=== PATIENT | female | born 1950 | race Caucasian/White ===

== ENCOUNTER → 2019-11-18 12:40 | Outpatient (CLI) | payer MEDICARE, SELFPAY ==
--- NOTE | ~2019-11-18 | DEXA_ITS ---
Bone Density Report Name: Tammy Zelaya Age: 69 Sex: Female Ethnicity: White Date of : 1950 Indication: osteopenia; height loss; postmenopausal Referring Provider: LOUIE, FERNANDA Study: Bone densitometry was performed. Exam Date: November 18, 2019 Accession number: [id number] Bone Density: Region BMD T-score Z-score Classification AP Spine (L1-L4) 0.813 -2.1 -0.2 Osteopenia Femoral Neck (Left) 0.544 -2.8 -1.1 Osteoporosis Total Hip (Left) 0.667 -2.3 -0.9 Osteopenia Femoral Neck (Right) 0.522 -2.9 -1.3 Osteoporosis Total Hip (Right) 0.642 -2.5 -1.1 Osteoporosis Total Hip Mean 0.655 -2.4 -1.0 Osteopenia World Health Organization criteria for BMD impression classify patients as: Normal (T-score at or above -1.0), Osteopenia (T-score between -1.0 and -2.5), or Osteoporosis (T-score at or below -2.5). 10-year Fracture Risk: FRAX not reported because: Some T-score for Spine Total or Hip Total or Femoral Neck at or below -2.5 Previous Exams: Region Exam Age BMD T-score BMD Change BMD Change Date g/cm2 vs Baseline vs Previous AP Spine(L1-L4) 11/18/2019 69 0.813 -2.1 -0.037* -0.033* 03/11/2017 66 0.846 -1.8 -0.004 0.018 12/21/2014 64 0.828 -2.0 -0.021 -0.021 12/15/2012 62 0.850 -1.8 Total Hip(Left) 11/18/2019 69 0.667 -2.3 -0.081* -0.025 03/11/2017 66 0.692 -2.1 -0.056* -0.012 12/21/2014 64 0.703 -2.0 -0.045* -0.045* 12/15/2012 62 0.748 -1.6 Total Hip(Right) 11/18/2019 69 0.642 -2.5 -0.076* -0.044* 03/11/2017 66 0.686 -2.1 -0.031* -0.011 12/21/2014 64 0.697 -2.0 -0.020 -0.020 12/15/2012 62 0.717 -1.8 *Denotes significance at 95% confidence level, LSC for AP Spine = 0.022 g/cm2, LSC for Total Hip = 0.027 g/cm2 Clinical Information Provided by Patient: Has used the following medications: Calcium, vit D included in calcium pill, MTV Patient maximum height was 65 Menopause Age: 52 Drinks caffeinated beverages Onset of menses at age 17 Number of children 2 Missed period for more than 6 months in a row Impression: The patient has osteoporosis, based on the Right Femoral Neck T-score. The BMD for the AP Spine(L1-L4) decreased, changing by -0.033 since the last DXA exam. The BMD for the Total Hip(Right) decreased, changing by -0.044 since the l
--- NOTE | ~2019-11-18 | MM_ITS ---
EXAMINATION: MM screening [facility] BI w rigo HISTORY: Screening mammogram TECHNIQUE: Craniocaudal and mediolateral oblique 3-D tomosynthesis images were obtained and synthetic 2-D images were generated. CAD analysis was submitted and interpreted. COMPARISON: 03/11/2017, 03/05/2017, 12/21/2014 BREAST PARENCHYMAL COMPOSITION: The breasts are heterogeneously dense, which may obscure small masses . FINDINGS: There is no evidence of suspicious mass, calcification, or architectural distortion to sugg est malignancy in either breast. There has been no suspicious interval change. IMPRESSION: 1. No mammographic evidence of malignancy. 2. Recommend routine screening mammography in one year. BI-RADS Category 1: Negative Reviewed, dictated and finalized at location B.
== END ==
PROVIDERS: PCP Family Medicine; Visit Provider Nurse Practitioner
DX: Z12.31 Encounter for screening mammogram for malignant neoplasm of breast (principal); M85.88 Other specified disorders of bone density and structure, other site; M85.852 Other specified disorders of bone density and structure, left thigh; M85.851 Other specified disorders of bone density and structure, right thigh; M81.0 Age-related osteoporosis without current pathological fracture
CPT/HCPCS: 77063; 77067; 77080

== ENCOUNTER → 2021-03-06 11:21 | Outpatient (CLI) | payer OTHER, SELFPAY ==
--- NOTE | ~2021-03-06 | MM_ITS ---
EXAMINATION: MM screening [facility] BI w rigo HISTORY: Screening mammogram TECHNIQUE: Craniocaudal and mediolateral oblique 3-D tomosynthesis images were obtained and synthetic 2-D images were generated. CAD analysis was submitted and interpreted. COMPARISON: 11/18/2019, 03/11/2017, 03/05/2017 BREAST PARENCHYMAL COMPOSITION: The breasts are extremely dense, which lowers the sensitivity of mamm ography. FINDINGS: There is no evidence of suspicious mass, calcification, or architectural distortion to sugg est malignancy in either breast. There has been no suspicious interval change. IMPRESSION: 1. No mammographic evidence of malignancy. 2. Recommend routine screening mammography in one year. BI-RADS Category 1: Negative Reviewed, dictated and finalized at location A. ER MANAGEMENT PROFESSOR
== END ==
PROVIDERS: PCP Family Medicine; Visit Provider Nurse Practitioner
DX: Z12.31 Encounter for screening mammogram for malignant neoplasm of breast (principal)
CPT/HCPCS: 77063; 77067

== ENCOUNTER 2022-02-05 01:35 | Day surgery (SDC) | payer OTHER, SELFPAY ==
[2022-01-21 14:15] VITALS: BMI 17.6
[2022-02-05 06:42] VITALS: BP 127/74; PULSE 97; RESP 16; TEMP 36.6; O2SAT 99
[2022-02-05] MEDS: LACTATED RINGERS 1,000 ML 150 ML IV CONT (06:52)
--- NOTE | 2022-02-05 07:47 | WPDANESEPPF ---
Anes - Initial Pre Proc Eval Procedure: Operation Date: 02/05/22 08:00 Proposed Procedures p Screening Colonoscopy - Javi Garcia MD Date/Time: 02/05/22 07:47 Surgeon: Javi Garcia MD Pre Op Diagnosis: hx colon polyps Patient Data Age: 71 Gender: F Height: 1.65 m Weight: 45.6 kg Last Vital Signs Temp 98 F 02/05/22 06:42 Pulse 97 02/05/22 06:42 Resp 16 02/05/22 06:42 BP 127/74 02/05/22 06:42 Pulse Ox 99 02/05/22 06:42 O2 Del Method Room Air 02/05/22 06:42 Allergies Allergy/AdvReac Type Severity Reaction Status Date / Time No Known Allergies Allergy Verified 02/05/22 06:41 Home Medications Medication Instructions Recorded Confirmed Type No Home Medications 02/05/22 02/05/22 History Patient hx anesthesia problems: none Family hx anesthesia problems: none Results Review: All pre-operative results and documents have been reviewed as part of the pre-operative evaluation. [facility] Social History Social History Smoking packs per day: 0.5 Smoking cigarettes per day: 10.0 Years smoked: 5 Smoking pack-years: 2.50 Smoking status: Former smoker Alcohol intake: never Substance use: never Substance use type: does not use Living arrangements: alone Spiritual care concerns: No Anes - Eval Final PreProcedure Day of Procedure 02/05/22 07:47 Patient weight: normal Heart: regular rate and rhythm Lungs: clear to auscultation Airway: Mallampati scale class II Neurological: alert and oriented Last oral intake: >/= 8 hours ASA classification: II Emergent: no Anesthetic plan: proceed Anesthesia type and monitoring: general GIVS and standard monitoring Results Review: All pre-operative results and documents have been reviewed as part of the pre-operative evaluation. Informed Consent: The patient's anesthetic plan and its attendant risks and benefits were discussed with the patient/family/POA. Questions were solicited and answers provided to the satisfaction of the patient/family/POA.
--- NOTE | 2022-02-05 08:06 | PM.HPGS ---
History of Present Illness History of Present Illness Consent: Risks, benefits, and alternatives have been discussed and questions answered. Patient agrees to proceed with procedure. Chief complaint: hx colon polyps Narrative: Tammy Zelaya is a 71 year old female Presumed presents for surveillance colonoscopy. Patient was found to have adenomatous colon polyp by previous colonoscopy 2017. Patient has a history of left-sided ulcerative colitis diagnosed elsewhere in 1996. At that time she responded to prednisone. Apparently she did not tolerate some of the other medications. And has not been on treatment since that time. For many years felt to be in remission. Patient reports a recent sense of urgency. A change in the bowel character. She occasionally will spot blood in her stools. Review of Systems Review of Systems: Review of systems noncontributory. [facility] Social History Social History Smoking packs per day: 0.5 Smoking cigarettes per day: 10.0 Years smoked: 5 Smoking pack-years: 2.50 Smoking status: Former smoker Alcohol intake: never Substance use: never Substance use type: does not use Living arrangements: alone Spiritual care concerns: No Meds Home Medications and Allergies Home Medications Medication Instructions Recorded Confirmed Type No Home Medications 02/05/22 02/05/22 History Allergies Allergy/AdvReac Type Severity Reaction Status Date / Time No Known Allergies Allergy Verified 02/05/22 06:41 Vital Signs Vital Signs - 24 hr 02/05/22 06:42 Temperature 98 F Pulse Rate 97 Respiratory Rate 16 Blood Pressure 127/74 Pulse Oximetry 99 Oxygen Delivery Room Air Exam Narrative: Physical exam reveals patient to be alert. Vital signs stable. HEENT exam is unremarkable. Patient is anicteric. Lungs are clear to auscultation and percussion. Heart is without murmur or extra sounds. Abdomen bowel sounds are present soft nontender with no organomegaly. Digital external rectal exam is normal. Assessment and Plan Assessment and plan (1) History of colon polyps: Code(s): Z86.010 - Personal history of colonic polyps Status: Acute Assessment and Plan: Patient with a history of adenomatous colon polyp removed from the colon 2017. Plan for surveillance colonoscopy now and at 5 year intervals in the future. Further recommendations may be given after endoscopy. (2) Left sided ulcerative colitis: Code(s): K51.50 - Left sided colitis without complications Status: Acute Assessment and Plan: Patient has a history of left-sided ulcerative colitis diagnosed 1996. She has not been on medication for many years. Currently with alteration in her bowel habits suggestive she may have a flare of disease will be assessed at time of colonoscopy.
[2022-02-05 08:41] VITALS: BP 102/63; PULSE 85; RESP 25; O2SAT 100
[2022-02-05 08:51] VITALS: BP 106/66; PULSE 83; RESP 23; O2SAT 99
[2022-02-05 09:01] VITALS: BP 116/70; PULSE 87; RESP 21; O2SAT 98
== END 2022-02-05 09:19 | disposition home or self-care (01) ==
PROVIDERS: PCP Family Medicine; Visit Provider Internal Medicine Gastroenterology
PROC: 0DJD8ZZ Inspection of Lower Intestinal Tract, Via Natural or Artificial Opening Endoscopic (ICD-10-PCS; CPT 45378; principal; 2022-02-05 08:00)
DX: Z12.11 Encounter for screening for malignant neoplasm of colon (principal); K51.90 Ulcerative colitis, unspecified, without complications; Z86.010 Personal history of colon polyps; K51.50 Left sided colitis without complications; Z87.891 Personal history of nicotine dependence
CPT/HCPCS: 45380; 88305; J2001; J2704; J7120

== ENCOUNTER → 2022-03-18 14:28 | Outpatient (CLI) | payer OTHER, SELFPAY ==
--- NOTE | ~2022-03-18 | MM_ITS ---
EXAMINATION: MM screening [facility] BI w rigo HISTORY: Screening mammogram TECHNIQUE: Craniocaudal and mediolateral oblique 3-D tomosynthesis images were obtained and synthetic 2-D images were generated. CAD analysis was submitted and interpreted. COMPARISON: 03/06/2021, 11/18/2019, 03/11/2017, 03/05/2017 BREAST PARENCHYMAL COMPOSITION: The breasts are extremely dense, which lowers the sensitivity of mamm ography. FINDINGS: No suspicious mass, calcification, or architectural distortion are identified in either velma ast to suggest malignancy. There has been no suspicious interval change. IMPRESSION: 1. No mammographic evidence of malignancy. 2. Recommend routine screening mammography in one year. BI-RADS Category 1: Negative Reviewed, dictated and finalized at location A. SUPPORT ENGINEER
--- NOTE | ~2022-03-18 | DEXA_ITS ---
Bone Density Report Name: ROCAEL GARZA Age: 71 Sex: Female Ethnicity: White Date of : 1950 Indication: postmenopausal osteoporosis; height loss; inflammatory bowel disease; Referring Provider: POLINA MERINO Study: Bone densitometry was performed. Exam Date: March 18, 2022 Accession number: [id number] Bone Density: Region BMD T-score Z-score Classification AP Spine (L1-L4) 0.838 -1.9 0.2 Osteopenia Femoral Neck (Left) 0.545 -2.7 -1.0 Osteoporosis Total Hip (Left) 0.664 -2.3 -0.8 Osteopenia Femoral Neck (Right) 0.519 -3.0 -1.2 Osteoporosis Total Hip (Right) 0.658 -2.3 -0.8 Osteopenia Total Hip Mean 0.661 -2.3 -0.8 Osteopenia World Health Organization criteria for BMD impression classify patients as: Normal (T-score at or above -1.0), Osteopenia (T-score between -1.0 and -2.5), or Osteoporosis (T-score at or below -2.5). 10-year Fracture Risk: FRAX not reported because: Some T-score for Spine Total or Hip Total or Femoral Neck at or below -2.5 Previous Exams: Region Exam Age BMD T-score BMD Change BMD Change Date g/cm2 vs Baseline vs Previous AP Spine(L1-L4) 03/18/2022 71 0.838 -1.9 -0.011 0.025* 11/18/2019 69 0.813 -2.1 -0.037* -0.033* 03/11/2017 66 0.846 -1.8 -0.004 0.018 12/21/2014 64 0.828 -2.0 -0.021 -0.021 12/15/2012 62 0.850 -1.8 Total Hip(Left) 03/18/2022 71 0.664 -2.3 -0.084* -0.003 11/18/2019 69 0.667 -2.3 -0.081* -0.025 03/11/2017 66 0.692 -2.1 -0.056* -0.012 12/21/2014 64 0.703 -2.0 -0.045* -0.045* 12/15/2012 62 0.748 -1.6 Total Hip(Right) 03/18/2022 71 0.658 -2.3 -0.060* 0.016 11/18/2019 69 0.642 -2.5 -0.076* -0.044* 03/11/2017 66 0.686 -2.1 -0.031* -0.011 12/21/2014 64 0.697 -2.0 -0.020 -0.020 12/15/2012 62 0.717 -1.8 *Denotes significance at 95% confidence level, LSC for AP Spine = 0.022 g/cm2, LSC for Total Hip = 0.027 g/cm2 Clinical Information Provided by Patient: Has used the following medications: Vitamin D, Calcium, MTV Has the following medical conditions: Inflammatory bowel diseases Patient maximum height was 65.0 Menopause Age: 52 Drinks caffeinated beverages Onset of menses at age 17 Number of children 2 Missed period for more than 6 months in a row
== END ==
PROVIDERS: PCP Family Medicine; Visit Provider Obstetrics & Gynecology Gynecology
DX: Z12.31 Encounter for screening mammogram for malignant neoplasm of breast (principal); M81.0 Age-related osteoporosis without current pathological fracture; M85.88 Other specified disorders of bone density and structure, other site; M85.852 Other specified disorders of bone density and structure, left thigh; M85.851 Other specified disorders of bone density and structure, right thigh
CPT/HCPCS: 77063; 77067; 77080